=== PATIENT | male | born 1950 | race Caucasian/White ===

== ENCOUNTER 2020-09-15 04:39 | Emergency (ER) | payer MEDICARE, OTHER, SELFPAY ==
--- NOTE | ~2020-09-15 | CT_ITS ---
EXAMINATION: CT abdomen pelvis w con EXAM DATE: 09/15/2020 06:57 INDICATION: Constipation, urinary retention for 2 days. Started vomiting today. TECHNIQUE: Spiral CT of the abdomen and pelvis was performed following intravenous injection of 100 m L Omnipaque 350. Axial, coronal and sagittal images were reviewed. The dose-length product (DLP) fo r this examination was 1037.55 mGy-cm. The exposure was tailored according to patient size (auto mA exposure control), and iterative reconstruction (ASIR) was used as additional dose reduction techniqu e. There is no prior study for comparison. FINDINGS: The liver, spleen, adrenal glands and pancreas are unremarkable. Gallbladder is unremarkab le. No biliary obstruction. Portal and splenic veins are patent. Kidneys enhance symmetrically. T here is no hydronephrosis. There is 3 mm left superior calyceal stone. No ureteral stones. The prost ate is unremarkable. There is bladder wall trabeculation and mild diffuse thickening without focal p olypoid urothelial lesion suspected. There is no retroperitoneal or pelvic lymphadenopathy. There are no findings to suggest appendicitis. The stomach and small bowel are unremarkable. There i s transverse colonic fluid. Overall moderate amount of colonic contents. No colonic wall thickening. No free intraperitoneal gas. The heart is normal in size. There are no pericardial or pleural effu sions. The lung bases are unremarkable. There are no osteoblastic or osteolytic lesions identified. IMPRESSION: 1. Possible acute or chronic cystitis. 2. Left nephrolithiasis. Reviewed, dictated and finalized at location A. CREAM CHEF
[2020-09-15 04:42] VITALS: BP 111/74; PULSE 91; RESP 18; TEMP 36; O2SAT 100
--- NOTE | 2020-09-15 05:48 | ED.GENADULT ---
HPI - General Adult General Chief complaint: Back Pain/Injury <Bradley Simons MD - Last Filed: 09/15/20 07:04> Stated complaint: constipated with urinary retention <Bradley Simons MD - Last Filed: 09/15/20 07:04> Time Seen by Provider: 09/15/20 05:25 <Bradley Simons MD - Last Filed: 09/15/20 07:04> History of Present Illness HPI narrative: Patient is 70-year-old gentleman who presents emerge department with chief complaint of abdominal discomfort nausea vomiting constipation and urinary retention. Patient states also he has had pain radiating down his lower extremities and states it is worse with movement. Patient states that he has not had a bowel movement in several days and has had difficulty urinating since he has not had a bowel movement. The patient states that upon arrival to the emergency department he had to go to the bathroom and had a very large bowel movement. Patient states after having a large bowel movement he was able to urinate and states that now the discomfort in his legs has resolved. <Bradley Simons MD - Last Filed: 09/15/20 07:04> Related Data Home medications: Home Medications Medication Instructions Recorded Confirmed cholecalciferol (vitamin D3) 09/15/20 [Vitamin D3] escitalopram oxalate 09/15/20 09/15/20 folic acid 09/15/20 methotrexate sodium [Methotrexate 09/15/20 (Anti-Rheumatic)] simvastatin 09/15/20 <Bradley Simons MD - Last Filed: 09/15/20 07:04> Allergies/adverse reactions: Allergies Allergy/AdvReac Type Severity Reaction Status Date / Time No Known Allergies Allergy Verified 09/15/20 04:56 <Bradley Simons MD - Last Filed: 09/15/20 07:04> Review of Systems Review of Systems: Narrative: A 10 system review of systems was completed on the patient and is negative except for what is stated in the HPI. Nursing and ancillary documentation was reviewed. <Bradley Simons MD - Last Filed: 09/15/20 07:04> [facility] Past Medical History Medical History: Medical History (Updated 09/15/20 @ 07:45 by Margret Lao MD) Hyperlipidemia <Bradley Simons MD - Last Filed: 09/15/20 07:04> Social History Social History: Social History Smoking status: Never smoker Alcohol intake: current Gender identity (if verbalized by the patient): Male <Bradley Simons MD - Last Filed: 09/15/20 07:04> Exam Narrative: Exam Narrative: GENERAL: Well-appearing, well-nourished, and in no acute distress. HEAD: Normocephalic, atraumatic. EYES: PERRLA and EOMI. ENT: Nares clear, no rhinorrhea or epistaxis. Mucous membranes moist. NECK: Supple. CHEST: Clear to auscultation. No respiratory distress. HEART: Regular rate and rhythm. No murmur heard. Normal peripheral pulses. ABDOMEN: Soft, nontender, nondistended, normal active bowel sounds. EXTREMITIES: Normal range of motion. No edema. SKIN: Warm, dry, no rash. NEURO: No focal deficits. Alert and oriented x3. PSYCH: Normal mood and affect. <Bradley Simons MD - Last Filed: 09/15/20 07:04> Course Course Emergency Course: Case was signed out to the day provider pending CT scans <Bradley Simons MD - Last Filed: 09/15/20 07:04> Reevaluation(s) Reevaluation #1: Patent is laying in bed in no acute distress. I discussed with patient and family that CT shows inflammation of bladder and constipation. He understands he is awaiting urinalysis results before discharge. I re commended follow up with urologist and PCP. He is also aware he needs to discuss with PCP if he needs colonoscopy. <Margret aLo MD - Last Filed: 09/15/20 18:46> Date: 09/15/20 <Margret Lao MD - Last Filed: 09/15/20 18:46> Time: 07:30 <Margret Lao MD - Last Filed: 09/15/20 18:46> Vital Signs Vital signs:
[2020-09-15 06:14] LABS: Basophils Percent Auto 0.3 % (0.2-1.2); Eosinophils Percent Auto 0.2 % (0-4.4); Hematocrit 39.6 % (42.0-52.0); Hemoglobin 13.3 g/dL (14.0-18.0); Immature Granulocyte Absolute 0.03 K/mm3 (0.00-0.031); Immature Granulocyte Percent A 0.2 % (0-0.5); Lymphocytes Absolute Auto 0.96 K/mm3 (0.9-3.2); Lymphocytes Percent Auto 7.8 % (18.3-44.2); Mean Corpuscular HGB Conc 33.6 g/dl (32-36); Mean Corpuscular Hemoglobin 31.8 pg (26-34); Mean Corpuscular Volume 94.7 fl (80-100); Mean Platelet Volume 8.8 fl (7.4-10.4); Monocytes Absolute Auto 0.8 K/mm3 (0.1-0.6); Monocytes Percent Auto 6.6 % (2.6-8.5); Neutrophils Absolute Auto 10.5 K/mm3 (1.3-6.7); Neutrophils Percent Auto 84.9 % (45.5-73.1); Platelet Count Result 210 k/mm3 (150-375); Red Blood Count 4.18 M/mm3 (4.6-6.20); Red Cell Distribution Width 13.5 % (11.5-14.5); White Blood Count 12.4 K/mm3 (4.5-10.0)
[2020-09-15 06:26] LABS: Alanine Aminotransferase 15 U/L (4-50); Albumin Level 3.9 g/dL (3.5-5.1); Alkaline Phosphatase 60 U/L (38-126); Anion Gap 4 mmol/L (8-16); Aspartate Amino Transferase 25 U/L (17-59); Bilirubin,Total 0.5 mg/dL (0.2-1.3); Blood Urea Nitrogen 20 mg/dL (9-20); Calcium 9.2 mg/dL (8.4-10.2); Carbon Dioxide 31 mmol/L (22-30); Chloride 98 mmol/L (98-107); Estimated CRCL calculation 74 ml/min; Estimated Glomerular Filt Rate > 60; Glucose 124 mg/dL (75-110); Lactic Acid Reflex 1.1 mmol/L (0.7-2.1); Lipase 91 U/L (23-300); Potassium 4.4 mmol/L (3.4-5.0); Sodium 133 mmol/L (137-145)
[2020-09-15 07:42] LABS: Add Urine Microscopic? NO; Appearance Urine Clear (Clear); Bilirubin Urine Negative (Negative); Blood Urine Negative (Negative); Color Urine Yellow (Yellow); Glucose Urine UA Negative (Negative); Ketones Urine Negative (Negative); Leukocyte Esterase Ur Negative LEU/UL (Negative); Nitrate Urine Negative (Negative); Protein Urine Negative (Negative); Specific Grav Ur 1.014 (1.001-1.035); Urobilinogen Urine Negative mg/dL (<2.0)
== END 2020-09-15 07:55 | disposition home or self-care (01) ==
PROVIDERS: General Practice; Emergency Provider Emergency Medicine
DX: K59.00 Constipation, unspecified (principal); N30.20 Other chronic cystitis without hematuria; N20.0 Calculus of kidney
CPT/HCPCS: 36415; 74177; 80053; 81003; 83605; 83690; 85025; 99284; Q9967

== ENCOUNTER 2021-01-24 09:28 | Outpatient (CLI) | payer MEDICARE, SELFPAY ==
--- NOTE | ~2021-01-24 | CT_ITS ---
EXAMINATION: CT lung screening DATE: 01/24/2021 09:54 INDICATION: Tobacco dependency TECHNIQUE: Computed tomography (CT) of the chest was performed without intravenous contrast. The dose -length product was 162.58 mGy-cm. Automated exposure control and iterative reconstruction technique were employed. COMPARISON: None FINDINGS: Calcified granuloma right lower lobe. Heart size is normal. No significant pleural or peric ardial effusion. The upper abdomen is unremarkable. No thoracic lymphadenopathy. There are a few scat tered calcified granulomas. No endobronchial lesions. There is dependent atelectasis. There are a few small 1-2 mm subpleural nodules bilaterally. There is a 4 mm subsolid nodule in the left upper lobe, best seen on coronal reconstruction image 70. IMPRESSION: 1. Lung-RADS category 2: Benign appearance or behavior. Continue annual screening with noncontrast lo w-dose chest CT in 12 months. Reviewed, dictated and finalized at location B. IMPRESSION: 1. Lung-RADS category 2: Benign appearance or behavior. Continue annual screeni ng with noncontrast low-dose chest CT in 12 months.
== END 2021-01-24 09:29 | disposition home or self-care (01) ==
PROVIDERS: PCP Nurse Practitioner Family; Visit Provider Nurse Practitioner Family
DX: F17.210 Nicotine dependence, cigarettes, uncomplicated (principal)
CPT/HCPCS: 71271

== ENCOUNTER 2022-12-18 07:58 | Outpatient (CLI) | payer MEDICARE, SELFPAY ==
--- NOTE | ~2022-12-18 | US_ITS ---
Ultrasound of the Abdominal Aorta INDICATION: Abdominal aortic aneurysm TECHNIQUE: Grayscale, color Doppler, and pulsed Doppler images of the aorta and common iliac arteries were obtained. COMPARISON: None. FINDINGS: Maximum vascular dimensions are as follows: Proximal aorta: 2.3 cm Mid aorta: 2.2 cm Distal aorta: 2.0 cm Right common iliac artery: 0.9 cm Left common iliac artery: 0 point cm There is no evidence of abdominal aortic aneurysm. IMPRESSION: No evidence for abdominal aortic aneurysm. Reviewed, dictated and finalized at location M.
--- NOTE | ~2022-12-18 | CT_ITS ---
EXAMINATION:CT lung screening DATE: 12/18/2022 08:33 INDICATION: Nicotine dependence, cigarettes, uncomplicated. Current smoker with 65 pack year history. TECHNIQUE: Computed tomography (CT) of the chest was performed without intravenous contrast. Automate d exposure control and iterative reconstruction technique were employed. The dose-length product (DLP ) was 181.12 mGy-cm. COMPARISON: Chest CT 01/24/2021 FINDINGS: There is mild scarring at the lung apices. There is mild emphysema. There is a pleural plaq ue on the right. Calcified bilateral lung nodules and calcified right hilar and mediastinal lymph nod es are consistent with old granulomatous disease. There are a few scattered 2 mm nodules in the lungs . No pleural effusion. The heart size is normal. There are coronary artery calcifications. No pericar dial effusion. Calcifications in the spleen are consistent with old granulomatous disease. There is d iffuse hepatic steatosis. There is mild thoracic spondylosis. IMPRESSION: 1. Lung-RADS category 2: Benign appearance or behavior. Continue annual screening with noncontrast lo w-dose chest CT in 12 months. Reviewed, dictated and finalized at location A. IMPRESSION: 1. Lung-RADS category 2: Benign appearance or behavior. Continue annual screeni ng with noncontrast low-dose chest CT in 12 months.
== END 2022-12-18 07:59 | disposition home or self-care (01) ==
PROVIDERS: Visit Provider Nurse Practitioner Family
DX: Z13.6 Encounter for screening for cardiovascular disorders (principal); F17.210 Nicotine dependence, cigarettes, uncomplicated
CPT/HCPCS: 71271; 76706

== ENCOUNTER 2023-12-08 12:56 | Outpatient (CLI) | payer MEDICARE, SELFPAY ==
--- NOTE | ~2023-12-08 | CT_ITS ---
EXAMINATION:CT lung screening DATE: 12/08/2023 13:24 INDICATION: Nicotine dependence. Current smoker with 45 pack year history. TECHNIQUE: Computed tomography (CT) of the chest was performed without intravenous contrast. Automate d exposure control and iterative reconstruction technique were employed. The dose-length product (DLP ) was 144.68 mGy-cm. COMPARISON: Chest CT 12/18/2022 FINDINGS: There is mild scarring at the lung apices. There is mild emphysema. There is peripheral sep dionisio thickening in the lungs. Calcified small pulmonary nodules and calcified mediastinal lymph nodes are consistent with old granulomatous disease. There are a few scattered 1-2 mm nodules in the lungs. No pleural effusion there is mild bilateral gynecomastia. The heart size is normal. There are romero ry artery calcifications. No pericardial effusion. Calcifications in the spleen are consistent with o ld granulomatous disease. There is mild thoracic spondylosis.. IMPRESSION: 1. Lung-RADS category 2: Benign appearance or behavior. Continue annual screening with noncontrast lo w-dose chest CT in 12 months. Reviewed, dictated and finalized at location E. IMPRESSION: 1. Lung-RADS category 2: Benign appearance or behavior. Continue annual screeni ng with noncontrast low-dose chest CT in 12 months.
== END 2023-12-08 12:57 | disposition home or self-care (01) ==
PROVIDERS: PCP Nurse Practitioner Family; Visit Provider Nurse Practitioner Family
DX: Z12.2 Encounter for screening for malignant neoplasm of respiratory organs (principal); F17.210 Nicotine dependence, cigarettes, uncomplicated
CPT/HCPCS: 71271

== ENCOUNTER 2024-12-08 16:57 | Emergency (ER) | payer MEDICARE, SELFPAY ==
--- NOTE | ~2024-12-08 | XR_ITS ---
HISTORY: left foot pain, injury COMPARISON: None TECHNIQUE: 3 views of the left foot were performed. FINDINGS: No acute fracture or dislocation is appreciated. Significant degenerative disease is noted with joint space narrowing and osteophyte formation.. The base of the fifth metatarsal is intact. No calcaneal spur is noted. Ossification of the insertion of the Achilles tendon is present. Heterogeneous appearance of the bone marrow. No significant soft tissue swelling is present. IMPRESSION: Significant degenerative disease with a heterogeneous appearance of the bone marrow. No acute fracture or dislocation. Reviewed, dictated and finalized at location A. IMPRESSION: Significant degenerative disease with a heterogeneous appearance o f the bone marrow. No acute fracture or dislocation.
[2024-12-08 16:58] VITALS: BP 122/53; PULSE 86; RESP 16; TEMP 36.8; O2SAT 99
--- NOTE | 2024-12-08 17:20 | ED.LOWEXIN ---
HPI - Extremity Injury (Lower) General Chief Complaint: Extremity Injury, Lower Stated Complaint: left foot injury Time Seen by Provider: 12/08/24 17:19 Source: patient Mode of arrival: ambulatory Limitations: no limitations History of Present Illness HPI Narrative: 74 YEARS OLD WHITE MALE HISTORY OF LEFT DROP FOOT, DOES NOT LIKE USE THE SPLINT BECAUSE CAUSING PAIN AT THE BACK OF HIS LEG. SOMEHOW KICKED HIS FOOT AGAINST SOMETHING TO HOUR PRIOR TO ARRIVAL TO THE EMERGENCY ROOM CAUSING SOME HEMATOMA IN PAIN AT THE 2ND TOE. HE DENIES OTHER INJURIES OR FALL. Related Data Home Medications ?Medication ?Instructions ?Recorded ?Confirmed ?Last Taken ?Type cholecalciferol (vitamin D3) 25 09/15/20 Unknown History mcg (1,000 unit) tablet (Vitamin D3) escitalopram oxalate 09/15/20 09/15/20 Unknown History folic acid 09/15/20 Unknown History methotrexate sodium 2.5 mg tablet 09/15/20 Unknown History simvastatin 09/15/20 Unknown History Allergies Allergy/AdvReac Type Severity Reaction Status Date / Time Penicillins Allergy Intermediate Hives Verified 12/08/24 17:00 Sulfa (Sulfonamide Allergy Hives Verified 12/08/24 17:00 Antibiotics) Review of Systems Review of Systems: All systems reviewed & are unremarkable except as noted in HPI and below PMFSH Past Medical History Medical History Hyperlipidemia Social History Social History Smoking status: Never smoker Alcohol intake: current Gender identity (if verbalized by the patient): Male Exam Narrative: GENERAL APPEARANCE: WELL-DEVELOPED, WELL-NOURISHED SKIN: NORMAL COLOR HEAD: NORMOCEPHALIC, NONTRAUMATIC EYES: CLEAR CONJUNCTIVA CHEST AND RESPIRATORY: AIRWAY PATENT, NO RESPIRATORY DISTRESS, NO ACCESSORY MUSCLE USE HEART: REGULAR RATE/RHYTHM VASCULAR: NORMAL PERIPHERAL PULSES, NORMAL CAPILLARY REFILL. 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 X-RAY OF THE LEFT FOOT SHOWED NO ACUTE OSSEOUS ABNORMALITY. DISCHARGED ON POSTOP SHOE. Differential Diagnosis Differential diagnosis: Likely other ( ABOVE) Imaging Data Radiologist's impression: Impressions Foot X-Ray 12/08/24 17:27 IMPRESSION: Significant degenerative disease with a heterogeneous appearance of the bone marrow. No acute fracture or dislocation. Critical Care Time Critical Care Time Critical Care Time: No Discharge Plan Discharge Clinical Impression: Injury of second toe of left foot Patient Disposition: Home Condition: Stable Instructions: Hematoma (ED) Additional Instructions: RETURN IF SYMPTOMS ARE WORSENING , CALL YOUR FAMILY PHYSICIAN FOR APPOINTMENT, TAKE TYLENOL NEEDED FOR ACHES AND PAIN, CONTINUE HOME MEDICATIONS., USE FOOT DROP SPLINT TO AVOID FUTURE INJURIES, KEEP FOOT ELEVATED Patient Language: Hungarian Prescriptions: No Action methotrexate sodium [Methotrexate (Anti-Rheumatic)] 2.5 mg Tablet cholecalciferol (vitamin D3) [Vitamin D3] 25 mcg (1,000 unit) Tablet escitalopram oxalate folic acid simvastatin polyethylene glycol 3350 [Miralax] 17 gram/dose powder 17 g PO DAILY Qty: 119 0RF Follow-up/Referrals: LAMIN,SHAUN JEFFERS [Primary Care Provider] -
--- OUTSIDE RECORDS SUMMARY | 2024-12-08 17:46 | XMS_ITS | Clinical Summary ---
Author Organization [facility] Address [address] [place] [address] Care Team Providers Care Set Up Machinist Name Role Phone Haylee Chaves APRN-CLINICAL RECRUITER Primary Care Provider [phone] Source Comments [facility],non-owned Affiliates and Associated Physician Practices is amultiple site organization consisting of ambulatory clinics and hospital sitesin [place], [place], [place] and [place]. This disclosure is being madepursuant to the Care Everywhere program and may not contain all information available regarding this patient. Last updated 18.[facility] Allergies Active Allergy Reactions Criticality Noted Date Comments Penicillins 08/27/2017 Sulfa Drugs 08/27/2017 Medications * Be aware that medications may not be up to date on this document. Alwaysverify current medications with the patient. QUETIAPINE FUMARATE ER PO Activ e escitalopram (LEXAPRO) 20 MG tablet Take 20 mg by mouth once daily Active methotrexate 2.5 MG tablet Take 2.5 mg by mouth every Friday, Friday & Friday Active simvastatin (ZOCOR) 40 MG tablet Take 40 mg by mouth at bedtime Active FOLIC ACID PO Active Vitamins A & D (VITAMIN A & D) [address] UNITS Active predniSONE (DELTASONE) 20 MG tablet Take 1 tablet by mouth 2 times daily 14 tablet 8 Active albuterol HFA (VENTOLIN HFA) 108 (90 BASE) MCG/ACT inhaler Inhale 2 puffs by mouth every 6 hours as needed for Wheezing or Cough 1 Inhaler 1 01/10/201 8 Active Active Problems No known active problems Encounters Date Type Department Care Team Description 10/19/2024 Travel from Last 3 Months Social History Tobacco Use Types Packs/Day Years Used Date Smoking Tobacco: Every Day Smokeless Tobacco: Never Sex and Gender Information Value Date Recorded Sex Assigned at Not on file Legal Sex Male 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 Gender Identity Not on file Sexual Orientation Not on file Last Filed Vital Signs Vital Sign Reading Time Taken Comments Blood Pressure 94/76 08/27/2017 12:36 PM PV DESIGN ENGINEER Pulse 94 08/27/2017 12:36 PM PV DESIGN ENGINEER Temperature 36.8 C (98.3 F) 08/27/2017 12:36 PM PV DESIGN ENGINEER Respiratory Rate 16 08/27/2017 12:36 PM PV DESIGN ENGINEER Oxygen Saturation 97% 08/27/2017 12:36 PM PV DESIGN ENGINEER Inhaled Oxygen Concentration - - Weight 99.8 kg (220 lb) 08/27/2017 12:36 PM PV DESIGN ENGINEER Height 175.3 cm (5' 9 ) 08/27/2017 12:36 PM PV DESIGN ENGINEER Body Mass Index 32.49 08/27/2017 12:36 PM PV DESIGN ENGINEER Plan of Treatment Health Maintenance Due Date Last Done Comments HEPATITIS C SCREENING 06/27/1966 DTAP/TDAP/TD VACCINES (1 - Tdap) 1967 PNEUMOCOCCAL VACCINE 50+ (1 of 2 - PCV) 1967 ZOSTER VACCINE (1 of 2) 1998 SCREENING FOR DIABETES 08/27/2017 Respiratory Syncytial Virus (RSV) Vaccine Pt: or over 60 yrs (1 - 1-dose 75+ series) 2023 COVID-19 VACCINE (2 - 2023-2 5 season) 2024 06/01/2021 DEPRESSION SCREENING 08/18/2024 MEDICARE AWV CALENDAR YEAR 2024 INFLUENZA VACCINE (Season Ended) 2025 07/14/20 17 HEPATITIS B VACCINE Aged Out No longe r eligible based on patient's age to complete this topic HIB VACCINE Aged Out No longer eligi ble based on patient's age to complete this topic HPV VACCINE Aged Out No longer eligi ble based on patient's age to complete this topic MENINGOCOCCAL (Group B) VACC INE SHARED DECISION-MAKING Aged Out No longer eligibl e based on patient's age to complete this topic MENINGOCOCCAL GROUPS A/C/Y/W VACCINE Aged Out No longer eligible b ased on patient's age to complete this topic Insurance Care Teams Set Up Machinist Relationship Specialty Start Date End Date Haylee Chaves APRN-ANGELIKA [address] [place] [address] PCP - General Nurse Practitioner 11/12/23
--- OUTSIDE RECORDS SUMMARY | 2024-12-08 17:46 | XMS_ITS | Encounter Summary ---
Author Organization [facility] Address [address] [place] [address] Phone Care Team Providers Care Stripping Machine Operator Name Role Phone Haylee Chaves NP Primary Care Provider + [phone] Chente Gaitan MD Unavailable [phone] Encounter Details Date Type Department Care Team (Late st Contact Info) Description 06/24/2024 Documentation [facility] Department of Psychiatry [address] [place] [address] Erik Keenan MD [address] [facility] [address] [place] [address] Social History Tobacco Use Types Packs/Day Years Used Date Smoking Tobacco: Every Day Cigarettes Sex and Gender Information Value Date Recorded Sex Assigned at Not on file Legal Sex Male 6:40 PM ULTRASONIC 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 [place], [place] [id number] PCP - General Nurse Practitioner 01/22/24 Chente Gaitan MD [address] [place] [id number] Referring Physician Neurology 01/22/24 documented as of this encounter
--- OUTSIDE RECORDS SUMMARY | 2024-12-08 17:46 | XMS_ITS | Clinical Summary ---
Author Organization [facility] Address [address] [place] [address] Care Team Providers Care Wildlife Science Professor Name Role Phone Haylee Chaves MARTIN Primary Care Provider [phone] Allergies Active Allergy Reactions Criticality Noted Date Comments Penicillins Rash Low 01/09/2021 Sulfa Antibiotics Rash Low 05/13/2016 Medications Cholecalciferol (VITAMIN D) 50 MCG (1999) Tab Take by mouth daily. Active fluocinonide (LIDEX) 0.05 % ointmentIndicatio ns:Psoriatic arthritis ([facility]) Apply topically 2 (two) times daily. 60 g 2 09/02/19 23 Active ketoconazole (NIZORAL) 2 % shampoo 05/29/20 23 Active DULoxetine (CYMBALTA) 20 MG capsuleIndication s:Moderate episode of recurrent major depressive disorder (CMS/HCC),Chronic bilateral low back pain with left-sided sciatica Take 1 capsule (20 mg total) by mouth daily. 90 capsule 3 01/29/20 24 Active QUEtiapine (SEROQUEL) 50 MG tabletIndications :Agitation,Primar y insomnia Take 1 tablet (50 mg total) by mouth nightly at bedtime. 30 tablet 5 03/01/20 24 Active tamsulosin (FLOMAX) 0.4 MG CapIndications:Ki dney stones TAKE 1 CAPSULE(0.4 MG) BY MOUTH EVERY NIGHT AT BEDTIME 90 capsule 3 03/10/20 24 Active donepezil (ARICEPT) 5 MG TabIndications:Me george loss Take 1 tablet (5 mg total) by mouth nightly at bedtime. 30 tablet 11 03/22/20 24 Active simvastatin (ZOCOR) 40 MG tabletIndications :Mixed hyperlipidemia TAKE 1 TABLET(40 MG) BY MOUTH EVERY NIGHT AT BEDTIME 90 tablet 1 04/26/20 24 Active cholestyramine (QUESTRAN) 4 G packetIndications :Diarrhea Take 1 packet (4 g total) by mouth daily. 90 each 1 04/29/20 24 Active LORazepam (ATIVAN) 0.5 MG tabletIndications :Panic attack,Anxiety take 1 tablet by mouth twice daily as needed for anxiety 60 tablet 06/10/20 24 Active methotrexate (TREXALL) 2.5 MG tabletIndications :Primary osteoarthritis involving multiple joints TAKE 8 TABLETS BY MOUTH ONCE WEEKLY 96 tablet 1 11/02/19 25 Active folic acid (FOLVITE) 1 MG tabletIndications :Folic acid deficiency TAKE 1 TABLET(1 MG) BY MOUTH DAILY 90 tablet 12/09/19 25 Active folic acid (FOLVITE) 1 MG tabletIndications :Folic acid deficiency TAKE 1 TABLET(1 MG) BY MOUTH DAILY 90 tablet 09/06/19 25 025 Discontinued Active Problems Problem Noted Date Diagnosed Date RUQ abdominal pain 05/07/2024 Weight loss 05/07/2024 Positive colorectal cancer screening using Colog uard test 02/27/2024 Altered mental status, unspe cified altered mental status type 08/05/2023 Agitation 08/05/2023 Memory loss 08/05/2023 Family history of dementia 08/05/2023 Dizziness, nonspecific 08/05/2023 Panic attack 08/05/2023 Tobacco use disorder, continuous 07/29/2023 History of psoriasis 07/29/2023 B12 deficiency 11/19/2022 Psoriatic arthritis ([facility]/H[facility]/HCC) 03/07/2022 Moderate episode of recurrent major depressive d isorder 03/05/2022 Chronic bilateral low back pain with left-sided sciatica 07/04/2021 Primary insomnia 07/04/2021 Chronic pain of left knee 07/04/2021 Nicotine dependence, cigarettes, uncomplicated 0 01/09/2021 Anxiety 01/09/2021 Kidney stones 01/09/2021 Mixed hyperlipidemia 01/09/2021 Folic acid deficiency 01/09/2021 Vitamin D deficiency 01/09/2021 Primary osteoarthritis involving multiple joints 01/09/2021 Declined smoking cessation 01/09/2021 Resolved Problems Problem Noted Date Diagnosed Date Resolved Date Left thigh pain 01/09/2021 08/05/2023 Encounter for prostate cancer screening 01/09/2021 01/15/2021 Morbid obesity 01/09/2021 08/05/2023 Psoriasis 01/09/2021 11/19/2022 Encounters Date Type Department Care Team Description 12/06/2024 7:20 AM CDT Laboratory Only [facility] Family & Internal [address] [address] Haylee Chaves FNP 12/06/2024 Travel 11/30/2024 Telephone [facility] Internal [address] [address] Haylee Chaves FNP Information 09/15/2024 Telephone [facility] Multispecialty Care - [facility] [address] [facility], [address] [place] [id number] Chente Gaitan MD Results 09/15/2024 Telephone [facility] Internal [address] [address] Haylee Chaves FNP Radiology Results 09/10/2024 1:44 PM DANCE COACH - 09/10/2024 11:59 PM DANCE COACH Hospital Encounter [facility] [place] [address] Chente Gaitan MD Discharge Disposition: Home or Self Care (Routine Discharge) 09/10/2024 Travel from Last 3 Months Immunizations Immunization Administration Dates Next Due Fluzone High Dose - >Age 65 (Prefilled Syringe) 07/29/2023,11/19/2022,05/29/2021 Influenza Adult (Generic) 07/14/2017 PFIZER COVID-19 (ORIGINAL FO RMULATION, PURPLE CAP) mRNA, LNP-S, PF, 30 MCG/0.3 ML DOSE 06/01/2021 Pneumococcal (Pneumovax 23) 07/14/2017 Pneumococcal (Prevnar 13) 01/28/2017 Pneumococcal (Prevnar 20) 03/05/2022 Tdap (Generic) 01/28/2017 Zoster (Zostavax) 07158 Unt/0.65Ml 05/30/2016 Family History Medical History Relation Comments Stroke Brother 1 Diabetes Brother 2 Arthritis Father Cancer Father Heart Disease Father Parkinson's Disease Father Psoriasis Father Hypertension Mother Relation Status Comments Brother 1 Alive Brother 2 Alive Father (Age 72) Mother Alive Son Alive Social History Tobacco Use Types Packs/Day Years Used Date Smoking Tobacco: Every Day Cigarettes 1.5 60 Passive Smoke Exposure: Current Smokeless Tobacco: Never Tobacco Cessation:Ready to Q uit: Yes; Counseling Given: Yes Comments:provider to financial aid counselor 1/2 PPD Alcohol Use Standard Drinks/Week Comments Yes 0 (1 standard drink = 0.6 oz pur e alcohol) socially PHQ-2 Answer Date Recorded Patient Health Questionnaire-2 Score 0 05/07/2024 Sex and Gender Information Value Date Recorded Sex Assigned at Male 09/03/2024 1:38 PM DANCE COACH Legal Sex Male 9:27 AM CDT Gender Identity Not on file Sexual Orientation Not on file Last Filed Vital Signs Vital Sign Reading Time Taken Comments Blood Pressure 152/77 08/02/2024 1:44 PM DANCE COACH Pulse 87 08/02/2024 1:44 PM DANCE COACH Temperature 36.7 C (98.1 F) 08/02/2024 1:44 PM DANCE COACH Respiratory Rate 20 07/21/2024 5:53 PM DANCE COACH Oxygen Saturation 100% 08/02/2024 1:44 PM DANCE COACH Inhaled Oxygen Concentration - - Weight 81.7 kg (180 lb 1.6 oz) 08/02/2024 1:44 P M DANCE COACH Height 175.3 cm (5' 9 ) 08/02/2024 1:44 PM DANCE COACH Body Mass Index 26.6 08/02/2024 1:44 PM DANCE COACH Plan of Treatment Upcoming Encounters Date Type Department Care Team (Late st Contact Info) Description 01/03/2025 2:40 PM CDT Office Visit [facility] Family & Internal Medicine [address] [address] Haylee Chaves, MARBLE COPER [address] [place] [address] 01/04/2025 2:00 PM CDT Office Visit [facility] Multispecialty Care - [facility] [address] [facility], [address] [place] [address] Chente Gaitan MD [address] [place] [address] Health Maintenance Due Date Last Done Comments Lung Cancer Screening 1998 Annual Medicare Wellness Visit 2013 Zoster Vaccines (2 of 3) 07/25/2016 05/30/2016 RSV Immunization or 60+ Years (1 - 1-dose 75+ series) 2023 COVID-19 Vaccine ( - 2023-2 5 season) 2024 06/01/2021, 10/13/2020, 09/22/2020 PHQ-2 (Physician Tribe) 08/18/2024 05/07/2024 DTaP, Tdap and Td Vaccines ( 2 - Td or Tdap) 01/28/2027 01/28/2017 Hepatitis C Completed 01/23/2021 Pneumococcal Vaccine: 50+ Years Completed 03/05/2022, 07/14/2017, 01/28/2017 Colorectal Cancer Screening FIT-DNA (3 Years) Discontinued 11/28/2022 Colorectal Cancer Screening Colonoscopy (10 Years) Discontinued 03/04/2024, 03/04/2024 Meningococcal B Vaccine Aged Out No l onger eligible based on patient's age to complete this topic Meningococcal Vaccine Aged Out No ambrosio grayson eligible based on patient's age to complete this topic RSV Immunizations Under 20 Months Aged Out No longer eligible based on patient's age to complete this topic Procedures Procedure Name Priority Date/Time Associated Diagnosis Comments COLLECTION VENOUS BLOOD VENIPUNCTURE Routine 12/06/2024 8:12 AM CDT B12 deficiency Folic acid deficiency Vitamin D deficiency Vitamin B deficiency Dementia (CMS/HCC) Psoriatic arthritis (CMS/HCC HHS/HCC) Mixed hyperlipidemia Screening PSA (prostate specific antigen) CBC W/DIFF AUTOMATED Routine 12/06/2024 8:12 AM CDT Vitamin D deficiency B12 deficiency Folic acid deficiency Vitamin B deficiency Dementia (CMS/HCC) Psoriatic arthritis (CMS/HCC HHS/HCC) Mixed hyperlipidemia LIPID PANEL Routine 12/06/2024 8:12 AM CDT Vitamin D deficiency B12 deficiency Folic acid deficiency Vitamin B deficiency Dementia (CMS/HCC) Psoriatic arthritis (CMS/HCC HHS/HCC) Mixed hyperlipidemia TSH W/REFLEX Routine 12/06/2024 8:12 AM CDT Vitamin D deficiency B12 deficiency Folic acid deficiency Vitamin B deficiency Dementia (CMS/HCC) Psoriatic arthritis (CMS/HCC HHS/HCC) Mixed hyperlipidemia PROSTATE SPECIFIC ANTIGEN,SCREENING Routine 12/06/2024 8:12 AM CDT Vitamin D deficiency B12 deficiency Folic acid deficiency Vitamin B deficiency Dementia (CMS/HCC) Psoriatic arthritis (CMS/HCC HHS/HCC) Mixed hyperlipidemia Screening PSA (prostate specific antigen) URIC ACID BLOOD Routine 12/06/2024 8:12 AM CDT Vitamin D deficiency B12 deficiency Folic acid deficiency Vitamin B deficiency Dementia (CMS/HCC) Psoriatic arthritis (CMS/HCC HHS/HCC) Mixed hyperlipidemia VITAMIN D, 25 OH Routine 12/06/2024 8:12 AM CDT Vitamin D deficiency B12 deficiency Folic acid deficiency Vitamin B deficiency Dementia (CMS/HCC) Psoriatic arthritis (CMS/HCC HHS/HCC) Mixed hyperlipidemia COMPREHENSIVE METABOLIC PANEL Routine 12/06/2024 8:12 AM CDT Vitamin D deficiency B12 deficiency Folic acid deficiency Vitamin B deficiency Dementia (CMS/HCC) Psoriatic arthritis (CMS/HCC HHS/HCC) Mixed hyperlipidemia MAGNESIUM Routine 12/06/2024 8:12 AM CDT Vitamin D deficiency B12 deficiency Folic acid deficiency Vitamin B deficiency Dementia (CMS/HCC) Psoriatic arthritis (CMS/HCC HHS/HCC) Mixed hyperlipidemia VITAMIN B-12 Routine 12/06/2024 8:12 AM CDT B12 deficiency FOLIC ACID SERUM Routine 12/06/2024 8:12 AM CDT Folic acid deficiency USV ART REST W JYOTI LOW EXT Routine 09/10/2024 2:15 PM DANCE COACH Claudication COLONOSCOPY Routine 03/04/2024 7:18 AM CDT COLOGUARD (EXACT SCIENCE) Routine 11/28/2022 10:00 AM CDT Screening for colon cancer HEPATITIS C ANTIBODY Routine 01/23/2021 9:38 AM CDT Need for hepatitis C screening test from Last 3 Months or Most Recently Relevant to Health Maintenance Results * TSH W/REFLEX (12/06/2024 8:12 AM CDT) TSH 3.133 0.358 - 3.740 uIU/ML 12/06/2024 4:39 PM CDT [facility] 12/06/2024 8:12 AM CDT Hyalee Chaves [facility] Final Result Performing Organization Address [facility] Co de Phone Number [address] [address], [place] [phone] * VITAMIN B-12 (12/06/2024 8:12 AM CDT) VITAMIN B12 S/P/B 786 193 - 986 PG/ML 12/06/2024 4:39 PM CDT [facility] 12/06/2024 8:12 AM CDT Haylee Miriam Hospitalsandra [facility] Final Result Performing Organization Address [facility]/ZIP Co de Phone Number [facility] [address] [place] [address], [place] [phone] * PROSTATE SPECIFIC ANTIGEN,SCREENING (12/06/2024 8:12 AM CDT) PSA 1.68 <4.00 NG/ML 12/06/2024 3:56 PM CDT [facility] Comment: ASSAY PERFORMED BY [employer] IMMUNOASSAY METHODOLOGY USING SIEMENS DIMENSION REAGENT. PATIENT RESULTS DETERMINED BY ASSAYS FROM DIFFERENT MANUFACTURERS AND/OR BY DIFFERENT METHODS MAY NOT BE COMPARABLE. 12/06/2024 8:12 AM CDT Haylee Chaves [facility] Final Result [facility] [address] [place] [address], [place] [phone] * (ABNORMAL) COMPREHENSIVE METABOLIC PANEL (12/06/2024 8:12 AM CDT) SODIUM S/P/B 143 136 - 145 MMOL/L 12/06/2024 4:39 PM CDT [facility] POTASSIUM S/P/B 4.4 3.5 - 5.1 MMOL/L 12/06/2024 4:39 PM CDT [facility] CHLORIDE S/P/B 107 98 - 107 MMOL/L 12/06/2024 4:39 PM CDT [facility] CO2 27.6 21 - 32 MMOL/L 12/06/2024 4:39 PM CDT [facility] GLUCOSE 103(H) 70 - 99 MG/DL 12/06/2024 4:39 PM CDT [facility] BUN 23(H) 7 - 18 MG/DL 12/06/2024 4:39 PM CDT [facility] CREATININE S/P/B 0.98 0.70 - 1.30 MG/DL 12/06/2024 4:39 PM CDT [facility] CALCIUM S/P/B 9.6 8.4 - 10.5 MG/DL 12/06/2024 4:39 PM [facility] BILIRUBIN TOTAL S/P/B 0.3 0.2 - 1.0 MG/DL 12/06/2024 4:39 PM [facility] ALKALINE PHOSPHATASE S/P/B 65 45 - 115 U/L 12/06/2024 4:39 PM T [facility] AST 15 15 - 37 U/L 12/06/2024 4:39 PM CDT [facility] ALT 24 16 - 63 U/L 12/06/2024 4:39 PM [facility] TOTAL PROTEIN S/P/B 6.6 6.4 - 8.2 G/DL 12/06/2024 4:39 PM [facility] ALBUMIN S/P/B 3.8 3.4 - 5.0 G/DL 12/06/2024 4:39 PM [facility] ANION GAP 8.4 5 - 15 MMOL/L 12/06/2024 4:39 PM [facility] Comment:REFERENCE RANGE NOT ESTABLISHED OSMOLALITY (CALC) 300 MOSM/KG 025 4:39 PM T [facility] Comment:REFERENCE RANGE NOT ESTABLISHED GFR ESTIMATE 80(L) >90 ML/MIN/1. 73 M2 12/06/2024 4:39 PM T [facility] GFR NOTES GFR REFERENCE S: 12/06/2024 4:39 PM [facility] Comment: THE ESTIMATED GFR IS CALCULATED USING THE 2020 CKD-EPI EQUATION. THE FOLLOWING CATEGORIES FOR GRADING RENAL FUNCTION ARE RECOMMENDED BY THE INTERNATIONAL SOCIETY OF NEPHROLOGY (KDIGO 2012 CLINICAL PRACTICE GUIDELINE). G1,NORMAL OR HIGH: >89 ml/min/1.73 m2 G2,MILDLY DECREASED: 60-89 ml/min/1.73 m2 G3A,MILDLY TO MODERATELY DECREASED: 45-59 ml/min/1.73 m2 G3B,MODERATELY TO SEVERELY DECREASED: 30-44 ml/min/1.73 m2 G4,SEVERELY DECREASED: 15-29 ml/min/1.73 m2 G5,KIDNEY FAILURE: <15 ml/min/1.73 m2 12/06/2024 8:12 AM CDT Haylee Chaves [facility] Final Result [facility] [address] [place] [address], [place] [phone] * LIPID PANEL (12/06/2024 8:12 AM CDT) CHOLESTEROL 165 <200 MG/DL 12/06/2024 4:39 PM CDT [facility] TRIGLYCERIDES 88 <150 MG/DL 12/06/2024 4:39 PM CDT [facility] HDL 57 >40 MG/DL 12/06/2024 4:39 PM CDT [facility] LDL-C 90 <100 MG/DL 12/06/2024 4:39 PM CDT [facility] VLDL CALCULATION 18 5 - 28 MG/DL 12/06/2024 4:39 PM CDT [facility] CHOL/HDL RATIO 2.9 0.0 - 4.0 12/06/2024 4:39 PM CDT [facility] LDL/HDL 1.6 0.41 - 2.13 12/06/2024 4:39 PM CDT [facility] NON HDL CHOLESTEROL 108 <140 MG/DL 12/06/2024 4:39 PM CDT [facility] 12/06/2024 8:12 AM CDT Haylee Chaves [facility] Final Result [facility] [address] [place] [address], [place] [phone] * FOLIC ACID SERUM (12/06/2024 8:12 AM CDT) FOLATE 18.1 8.6 - 58.9 NG/ML 12/07/2024 12:24 PM CDT [facility] 12/06/2024 8:12 AM CDT Haylee Chaves [facility] Final Result [facility] [address] [place] [address], * (ABNORMAL) CBC W/DIFF AUTOMATED (12/06/2024 8:12 AM CDT) WBC 5.88 4.00 - 10.80 x10'3/uL 12/06/2024 3:10 PM CDT [facility] RBC 4.22(L) 4.50 - 6.10 x10'6/uL 12/06/2024 3:10 PM CDT [facility] HGB 13.6 13.0 - 18.0 G/DL 12/06/2024 3:10 PM CDT [facility] HCT 40.4 37.0 - 52.0 % 12/06/2024 3:10 PM CDT [facility] MCV 95.7 78.0 - 100.0 FL 12/06/2024 3:10 PM CDT [facility] MCH 32.2(H) 27.0 - 31.0 PG 12/06/2024 3:10 PM CDT [facility] MCHC 33.7 33.0 - 36.0 G/DL 12/06/2024 3:10 PM CDT [facility] RDW 13.1 11.5 - 14.5 % 12/06/2024 3:10 PM CDT [facility] PLT 234 150 - 350 x10'3/uL 12/06/2024 3:10 PM CDT [facility] MPV 9.6 7.4 - 10.4 FL 12/06/2024 3:10 PM CDT [facility] DIFFERENTIAL TYPE AUTOMATED DIFFERENTIAL 12/06/2024 3:10 PM CDT [facility] NEUTROPHILS % 43.0 % 12/06/2024 3:10 PM CDT [facility] LYMPHOCYTES % 45.4 % 12/06/2024 3:10 PM CDT [facility] MONOCYTES % 7.5 % 12/06/2024 3:10 PM CDT [facility] EOSINOPHILS % 3.6 % 12/06/2024 3:10 PM CDT [facility] BASOPHILS % 0.5 % 12/06/2024 3:10 PM CDT [facility] IMMATURE GRANS % 0.0 % 12/06/2024 3:10 PM CDT [facility] ABS. NEUTROPHILS 2.53 1.60 - 8.30 x10'3/uL 12/06/2024 3:10 PM CDT [facility] ABS. LYMPHOCYTES 2.67 0.80 - 4.70 x10'3/uL 12/06/2024 3:10 PM CDT [facility] ABS. MONOCYTES 0.44 0.00 - 1.50 x10'3/uL 12/06/2024 3:10 PM CDT [facility] ABS. EOSINOPHILS 0.21 0.00 - 0.40 x10'3/uL 12/06/2024 3:10 PM CDT [facility] ABS. BASOPHILS 0.03 0.00 - 0.20 x10'3/uL 12/06/2024 3:10 PM CDT [facility] ABS. IMMATURE GRANULOCYTES 0.00 0.00 - 0.03 x10'3/uL 12/06/2024 3:10 PM CDT [facility] 12/06/2024 8:12 AM CDT us Haylee Connorsandra [facility] Final Result Performing Organization Address City/[facility]/ZIP Co de Phone Number [facility] [address] [place] [address], [place] [phone] * VITAMIN D, 25 OH (12/06/2024 8:12 AM CDT) VITAMIN D 25 HYDROXY TOTAL S/P/B 91.4 30 - 100 NG/ML 12/06/2024 4:39 PM CDT [facility] Comment: DEFICIENT <20 INSUFFICIENT 20-30 SUFFICIENT 30-100 12/06/2024 8:12 AM CDT Haylee Connorsandra [facility] Final Result Performing Organization Address City/[facility] Co de Phone Number [facility] [address] [place] [address], [place] [phone] * MAGNESIUM (12/06/2024 8:12 AM CDT) MAGNESIUM 2.3 1.8 - 2.4 MG/DL 12/06/2024 4:39 PM CDT [facility] 12/06/2024 8:12 AM CDT Haylee Connorsandra [facility] Final Result Performing Organization Address City/[facility]/ZIP Co de Phone Number [facility] [address] [place] [address], [place] [phone] * URIC ACID BLOOD (12/06/2024 8:12 AM CDT) URIC ACID 4.8 3.5 - 7.2 MG/DL 12/06/2024 3:44 PM CDT [facility] 12/06/2024 8:12 AM CDT Haylee Chaves [facility] Final Result [facility] [address] [facility] [address], * USV ART REST W JYOTI LOW EXT (09/10/2024 2:15 PM DANCE COACH) Anatomical Region Laterality Modality Extremity Vascular Ultraso und 09/10/2024 1:53 PM DANCE COACH Narrative 09/14/2024 2:42 PM DANCE COACH ARTERIAL DOPPLER - JYOTI BILATERAL LOWER EXTREMITY VASCULAR LAB Pat.Name: CARLOS A CHOUDHARY Ethan Pat.ID: [id number] St.Date: 09/10/2024 Refer.MD: Haylee Chaves Exam Time: 1:53:00 PM Study Type:MARGARITA VS Arterial Doppler Legs SHAILA Age: 11 1950,74Y Sex: M Sonogrphr: Shlomo Almaguer, T Pat. Stat.:Outpatient History / Clinical:smoker, HLD, leg pain, imbalance, bilateral foot numbness; caludication per ordering provider Procedures: Doppler waveforms, Digit PPG, Systolic Pressures w/JYOTI Race: W ++++++++++++++++++++++++++++++++++++ SUMMARY: ++++++++++++++++++++++++++++++++++++ Randall JYOTI Criteria: >1.30 = falsely elevated, calcified vessels; 1.00-1.29 = no signif ischemia at rest ; .80-.99 = mild PAD, asymptomatic; .50-.79 = moderate PAD, claudication; <.50 = severe PAD, rest pain; <.30 = critical PAD, necrosis, poor healing (Digits: DBI >.60 Normal; <.60 Abnormal) (Positive Stress eval: JYOTI decrease of >.20 or >20% pressure drop) Right leg: Common Femoral waveform is triphasic, high amplitude; Popliteal triphasic, high amplitude; Posterior Tibial triphasic, high amplitude with JYOTI 1.37 ; DP/Anterior Tibial triphasic, high amplitude with JYOTI 0.922 . Digit flow by PPG is medium amplitude, low amplitude with DBI 1.04 . Left leg: Common Femoral waveform is triphasic, high amplitude; Popliteal triphasic, high amplitude; Posterior Tibial triphasic, high amplitude with JYOTI 1.41 ; DP/Anterior Tibial triphasic, high amplitude with JYOTI 1.05 . Digit flow by PPG is medium amplitude with DBI 1.12 . CONCLUSION:JYOTI right > 1.0 with triphasic waveforms, with toe index 1.04 . JYOTI left > 1.0 with triphasic waveforms, with toe index 1.12 . No significant peripheral arterial disease at rest. No evidence of tibial artery disease bilaterally. There is no evidence of small vessel disease or embolism in either foot. ++++++++++++++++++++++++++++++++++++ MEASUREMENTS: ++++++++++++++++++++++++++++++++++++ PRESSURES Right Brachial Brach P 128 mmHg Right Ankle DP AnkleDP P 118 mmHg Right Ankle PT AnklePT P 175 mmHg Right Great Toe GreatToe P 133 mmHg Right JYOTI PT JYOTI PT 1.37 Right JYOTI DP JYOTI DP 0.922 Right TBI TBI 1.04 Left Brachial Brach P 125 mmHg Left Ankle DP AnkleDP P 135 mmHg Left Ankle PT AnklePT P 180 mmHg Left Great Toe GreatToe P 144 mmHg Left JYOTI PT JYOTI PT 1.41 Left JYOTI DP JYOTI DP 1.05 Left TBI TBI 1.12 <Electronic Signature> 09/14/2024 02:42 PM Thai Chiu M.D. Procedure Note Thai Chiu MD - 09/14/2024 ARTERIAL DOPPLER - JYOTI BILATERAL LOWER EXTREMITY VASCULAR LAB Pat.Name: CARLOS A CHOUDHARY Pat.ID: [id number] St.Date: 09/10/2024 Refer.MD: Haylee Chaves Exam Time: 1:53:00 PM Study Type:MARGARITA VS Arterial Doppler Legs SHAILA Age: 11 1950,74Y Sex: M Sonogrphr: Shlomo Almaguer, RVT Pat. Stat.:Outpatient History / Clinical:smoker, HLD, leg pain, imbalance, bilateral foot numbness; caludication per ordering provider Procedures: Doppler waveforms, Digit PPG, Systolic Pressures w/JYOTI Race: W ++++++++++++++++++++++++++++++++++++ SUMMARY: ++++++++++++++++++++++++++++++++++++ Randall JYOTI Criteria: >1.30 = falsely elevated, calcified vessels; 1.00-1.29 = no signif ischemia at rest ; .80-.99 = mild PAD, asymptomatic; .50-.79 = moderate PAD, claudication; <.50 = severe PAD, rest pain; <.30 = critical PAD, necrosis, poor healing (Digits: DBI >.60 Normal; <.60 Abnormal) (Positive Stress eval: JYOTI decrease of >.20 or >20% pressure drop) Right leg: Common Femoral waveform is triphasic, high amplitude; Popliteal triphasic, high amplitude; Posterior Tibial triphasic, high amplitude with JYOTI 1.37 ; DP/Anterior Tibial triphasic, high amplitude with JYOTI 0.922 . Digit flow by PPG is medium amplitude, low amplitude with DBI 1.04 . Left leg: Common Femoral waveform is triphasic, high amplitude; Popliteal triphasic, high amplitude; Posterior Tibial triphasic, high amplitude with JYOTI 1.41 ; DP/Anterior Tibial triphasic, high amplitude with JYOTI 1.05 . Digit flow by PPG is medium amplitude with DBI 1.12 . CONCLUSION:JYOTI right > 1.0 with triphasic waveforms, with toe index 1.04 . JYOTI left > 1.0 with triphasic waveforms, with toe index 1.12 . No significant peripheral arterial disease at rest. No evidence of tibial artery disease bilaterally. There is no evidence of small vessel disease or embolism in either foot. ++++++++++++++++++++++++++++++++++++ MEASUREMENTS: ++++++++++++++++++++++++++++++++++++ PRESSURES Right Brachial Brach P 128 mmHg Right Ankle DP AnkleDP P 118 mmHg Right Ankle PT AnklePT P 175 mmHg Right Great Toe GreatToe P 133 mmHg Right JYOTI PT JYOTI PT 1.37 Right JYOTI DP JYOTI DP 0.922 Right TBI TBI 1.04 Left Brachial Brach P 125 mmHg Left Ankle DP AnkleDP P 135 mmHg Left Ankle PT AnklePT P 180 mmHg Left Great Toe GreatToe P 144 mmHg Left JYOTI PT JYOTI PT 1.41 Left JYOTI DP JYOTI DP 1.05 Left TBI TBI 1.12 <Electronic Signature> 09/14/2024 02:42 PM Thai Chiu M.D. Chente Gaitan MD [facility] Final Res ult * (ABNORMAL) COLOGUARD ([employer]) (11/28/2022 10:00 AM CDT) COLOGUARD RESULT Positive( A) Negative [employer] (CLIA #:[id number]) Comment: POSITIVE TEST RESULT. A positive Cologuard result should be followed with a colonoscopy or visual examination of the colon. The normal value (reference range) for this assay is negative. TEST DESCRIPTION: Composite algorithmic analysis of stool DNA-biomarkers with hemoglobin immunoassay. Quantitative values of individual biomarkers are not reportable and are not associated with individual biomarker result reference ranges. Cologuard is intended for colorectal cancer screening of adults of either sex, 45 years or older, who are at average-risk for colorectal cancer (CRC). Cologuard has been approved for use by the U.S. FDA. The performance of Cologuard was established in a cross sectional study of average-risk adults aged 50-84. Cologuard performance in patients ages 45 to 49 years was estimated by sub-group analysis of near-age groups. Colonoscopies performed for a positive result may find as the most clinically significant lesion: colorectal cancer [4.0%], advanced adenoma (including sessile serrated polyps greater than or equal to 1cm diameter) [20%] or non- advanced adenoma [31%]; or no colorectal neoplasia [45%]. These estimates are derived from a prospective cross-sectional screening study of 10,000 individuals at average risk for colorectal cancer who were screened with both Cologuard and colonoscopy. (Richard Bey al, N Engl J Med 2014;370(14):3834-2835.) Cologuard may produce a false negative or false positive result (no colorectal cancer or precancerous polyp present at colonoscopy follow up). A negative Cologuard test result does not guarantee the absence of CRC or advanced adenoma (pre-cancer). The current Cologuard screening interval is every 3 years. ([place] [employer] and U.S. Multi-Society Task Force). Cologuard performance data in a 10,000 patient pivotal study using colonoscopy as the reference method can be accessed at the following location: www.UrtheCast.Interse/results. Additional description of the Cologuard test process, warnings and precautions can be found at www.cologuard.Interse. STOOL STOOL SPECIMEN / Unknown 11/28/2022 10:00 AM CDT 11/30/2022 6:14 PM CDT Haylee Chaves [facility] [employer] ORDERAB LES Final Result Performing Organization Address City/[facility] Co de Phone Number Xiaoi Robert ([facility]) [address] [place] [address], [facility] (CLIA #:[id number]) [address] [place] [address] * HEPATITIS C ANTIBODY (01/23/2021 9:38 AM CDT) HEPATITIS C AB NON-REACTI VE NON-REACT RAMONA 01/23/2021 10:08 PM CDT [facility] Comment: ANTIBODIES TO HCV NOT DETECTED. DOES NOT EXCLUDE THE POSSIBILITY OF EXPOSURE TO HCV. 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
--- OUTSIDE RECORDS SUMMARY | 2024-12-08 17:47 | XMS_ITS | Clinical Summary ---
Author Organization [facility] Address [address] [place] [phone] Care Team Providers Care Glass Cut Off Supervisor Name Role Phone Haylee Chaves NP Primary Care Provider [phone] Chente Gaitan MD Unavailable [phone] Allergies Active Allergy Reactions Criticality Noted Date Comments Penicillin Hives Medium 04/28/2024 Patient gets gives Penicillins Rash Medium 08/27/2017 Sulfa Rash Medium 05/13/2016 Medications cholestyramine (QUESTRAN) 4 gram packet Take 1 packet (4 g total) by mouth daily 4 Active ketoconazole (NIZORAL) 2 % shampoo 3 Active simvastatin (ZOCOR) 40 mg tablet Take 1 tablet (40 mg total) by mouth daily 4 Active vitamin A palmitate-vitam in D2 10,000-400 unit tablet Take by mouth Active methotrexate 2.5 mg tablet Take 8 tablets (20 mg total) by mouth every 7 days Active sodium, potassium & mag sulfates (SUPREP BOWEL KIT) 17.5-3.13-1.6 gram recon soln TAKE 177ML BY MOUTH EVERY 12 HOURS FOR 1 DAY. TAKE DIRECTED IN THE INSTRUCTIONS 4 Active tamsulosin (FLOMAX) 0.4 mg extended release capsule TAKE 1 CAPSULE(0.4 MG) BY MOUTH EVERY NIGHT AT BEDTIME 4 Active memantine (NAMENDA) 10 mg tabletIndicatio ns:Moderate to Severe Alzheimer's Type Dementia Take 1 tablet (10 mg total) by mouth 2 (two) times a day 30 tablet 5 4 Active LORazepam (ATIVAN) 0.5 mg tablet Take 1 tablet (0.5 mg total) by mouth nightly as needed for anxiety 30 tablet 1 4 Active QUEtiapine (SEROquel) 50 mg tablet Take 1 tablet (50 mg total) by mouth nightly 30 tablet [address] (CYMBALTA) 60 mg capsule Take 1 capsule (60 mg total) by mouth daily In addition, take 30 mg daily for a total of 90 mg daily. 30 capsule 11 5 08/26/[address] (CYMBALTA) 30 mg capsule Take 1 capsule (30 mg total) by mouth daily In addition, take 60 mg daily for a total of 90 mg daily. 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 06/24/2024 Dementia without behavioral disturbance 06/24/20 24 KALANI (obstructive sleep apnea) 06/24/2024 Generalized anxiety disorder 06/24/2024 Encounters Date Type Department Care Team Description 10/22/2024 Documentation [facility] Department of Psychiatry [address] [place] [phone] Susanna Scales BS 10/19/24 no show (10/19/24 no show letter sent via [employer] (1st offense return)) from Last 3 Months Family History Medical History Relation Name Comments Dementia Mother Relation Name Status Comments Mother Social History Tobacco Use Types Packs/Day Years Used Date Smoking Tobacco: Every Day Cigarettes PHQ-2 Answer Date Recorded PHQ-2 Total Score (If total score is 3 or more points, staff should administer the PHQ-9) 4 08/26/2024 PHQ-9 Answer Date Recorded PHQ-9 Total Score 18 08/26/2024 Sex and Gender Information Value Date Recorded Sex Assigned at Not on file 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 Gender Identity Not on file Sexual Orientation Not on file Obstetrics History Last Filed Vital Signs Vital Sign Reading Time Taken Comments Blood Pressure 123/61 04/28/2024 2:37 PM CDT Pulse 85 04/28/2024 2:37 PM CDT Temperature - - Respiratory Rate - - Oxygen Saturation - - Inhaled Oxygen Concentration - - Weight 78 kg (172 lb) 04/28/2024 2:37 PM CDT Height 175.3 cm (5' 9 ) 04/28/2024 2:37 PM CDT Body Mass Index 25.4 04/28/2024 2:37 PM CDT Plan of Treatment Health Maintenance Due Date Last Done Comments Fall Risk Assessment 1950 Hepatitis C Screening 1950 Hepatitis B Screening 1966 Well Visit 65+ 2013 Zoster Vaccine (1 of 2) 07/25/2016 05/30/2016 Covid-19 Vaccine ( - 2023-2 5 season) 2024 06/01/2021, 10/13/2020, 09/22/2020 Influenza Vaccine (Season Ended) 2025 07/29/2023, 11/19/2022, 05/29/2021, Additional history exists Depression Screening 08/26/2025 08/26/2024, 08/26/19 25 DTaP/Tdap/Td Vaccine (2 - Td or Tdap) 01/28/2027 01/28/2017 Pneumococcal vaccine 65+ Completed 022, 07/14/2017, 01/28/2017 Abdominal Aortic Aneurysm (A AA) Screen Completed 07/17/2024, 01/30/2024 Insurance [facility] MEDICARE ADVANTAGE [facility] Address: [address] [place] [address] Care Teams Glass Cut Off Supervisor Relationship Specialty Start Date End Date Haylee Chaves NP [facility] [place] [address] PCP - General Nurse Practitioner 01/22/24 Chente Gaitan MD [address] [place] [address] Referring Physician Neurology 01/22/24
--- OUTSIDE RECORDS SUMMARY | 2024-12-08 17:47 | XMS_ITS | Referral Summary ---
Author Organization [facility] Address [address] [place] [phone] Care Team Providers Care Urban Planner Name Role Phone Haylee Chaves NP Primary Care Provider [phone] Chente Gaitan MD Unavailable [phone] Encounters Date Type Department Care Team Description 10/22/2024 Documentation [facility] Department of Psychiatry [address] [phone] Susanna Scales, BLANQUITA 10/19/24 no show (10/19/24 no show letter sent via [employer] (1st offense return)) from Last 3 Months Allergies Active Allergy Reactions Criticality Noted Date [...] 30 capsule 11 5 08/26/19 26 Active Active Problems Problem Noted Date Diagnosed Date 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 06/24/2024 Dementia without behavioral disturbance 06/24/20 KALANI (obstructive sleep apnea) 06/24/2024 Generalized anxiety disorder 06/24/2024 Social History Tobacco Use Types Packs/Day Years Used Date Smoking Tobacco: Every Day Cigarettes PHQ-2 Answer Date Recorded PHQ-2 Total Score (If total score is 3 or more points, staff should administer the PHQ-9) 4 08/26/2024 PHQ-9 Answer Date Recorded PHQ-9 Total Score 18 08/26/2024 Sex and Gender Information Value Date Recorded Sex Assigned at Not on file Legal Sex Male 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
== END 2024-12-08 18:15 | disposition home or self-care (01) ==
PROVIDERS: Emergency Provider Emergency Medicine; PCP Nurse Practitioner Family
DX: S99.922A Unspecified injury of left foot, initial encounter (principal); W22.8XXA Striking against or struck by other objects, initial encounter; E78.5 Hyperlipidemia, unspecified
CPT/HCPCS: 73630; 99283